=== PATIENT | male | born 1975 | race Caucasian/White ===

== ENCOUNTER 2017-07-21 09:00 | Outpatient (RCR) ==
--- NOTE | 2017-07-12 11:43 | RS.OPPTEV2 ---
Date of Note: 07/11/17 Visit #: 1 Date of Evaluation: 07/11/17 Payer Source: Insurance Treatment Diagnosis: Lumbar spondylolisthesis, right LE pain History of Condition/Mechanism of Injury:: Patient reports having symptoms for approximately a year. States pain has progressively gotten worse over the last six months. Reports no specific injury. Prior Level of Function.....Patient was independent with: ADL's, Self Care, Work /Vocation, Caregiving, Ambulation/Mobility, Community Integration/Access Functional Limitations: Standing, Community Access/Integration Current Subjective/complaints:: Patient reports pain into the right buttock/hip with standing and walking. States he is fine in sitting. States he is at the point that he can hardly stand for 30 minutes due to pain. States it feels like pain and tightness, "like a bad Charley horse". Denies any symptoms on the left LE. Reports if he stands very long, it sometimes feels like he needs to drag the right leg or force it forward. States he has no problems sleeping, just standing and walking. He wants to try therapy and hopes to avoid surgery. Medical History Surgical History Comments:: Appendectomy Smoking Status: Never smoker Diagnostic Testing/Imaging:: X ray lumbar spine: Impression:Stable grade 1 spondyloslisthesis at L5-S1 measuring 9mm without evidence of instability. 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 Hx Home Medications: Diclofenac Patient's Goals: His goal is to get relief of his symptoms and avoid surgery. Pain Assessment - Pain Description Pain Location: right hip/buttock area Pain Description: Tightness Current Pain Intensity: not quantified Worst Pain Intensity: not quantified Functional Outcome Measure LE Functional Scale: 61 (61/80=23.75% impairment) - G Codes & Severity Modifier G Codes & Modifier: NA Source of G Code score: NA Observation - Observation Posture: Forward Head, Rounded Shoulders Gait - Gait Pattern General Gait Pattern Observation: No Deviations/Normal - ROM Lumbar Flexion: Hand reach to patellae Sidebending to Left: Reach to Mid-thigh Sidebending to Right: Reach to Mid-thigh Comments: Lumbar extension is WFL's with reports of tenderness in the right hip/ low back with end range. Lower trunk rotation is more limited to his left. Bilateral LE AROM is WFL's. - Strength Comments: Trunk strength is good. LE strength is bilaterally 5/5. - Special Tests AMOR Test: Negative Left, Negative Right SLR Test: Negative Left, Negative Right Seated Dural Stretch Test: Negative Left, Negative Right SI Joint Distraction: Negative Palpation Comments:: Patient reports no tenderness along the lumbar paraspinals or to either SI joint. Also reports no symptoms with central pressures throughout the lumbar paraspinals. Demonstrates moderate muscle guarding along the right lumbar paraspinals. Minimal increased muscle guarding along the left. Sensation - Sensation Right Lower Extremity: Intact/Normal Left Lower Extremity: Intact/Normal Additional Comments: Additional Comments: Right SLR in supine to 30-35 degrees, Left to 45 degrees. Right hip external rotation is also tighter compared to the left. Interventions - Exercise/Activities/Manual Therapy Exercises/Activities: Patient instructed in exercises of stretching: HS, piriformis, and lower trunk rotation , and also SLR and isometric hip flexion for anterior trunk strengthening. Manual Therapy: NA HOME EXERCISE PROGRAM: stretching: HS, piriformis, and lower trunk rotation , and also SLR and isometric hip flexion for anterior trunk strengthening. - Charges Timed Code Treatment Minutes: 0 Total Treatment Time: 40 mins Procedures billed for this date of service:: EVAL Low Assessment Assessment: Patient presents to therapy with a diagnosis of Spondylolisthesis of lumbosacral region. He presents with reports of right hip/buttock pain and feeling of tightness which is brought on during standing and walking. His X ray reports describes Grade 1 Spondylolisthesis at L5-S1. He demonstrates tight HS, especially the right LE. He will benefit from LE stretching and anterior trunk strengthening to reduce his symptoms into the right LE. Patient Education: Education of diagnosis, Body/Joint mechanics, Home Exercise Program, Activity Modification, Education of Plan of Care Rehab Potential: Good Short Term Goals Goal #1: Right SLR to 40-45 degrees. Goal to be met by: 07/25/17 Goal #2: Pt independent and compliant in HEP. Goal to be met by: 07/25/17 [employer] Goals Goal #1: Pt knows HEP and to continue ex's to maintain functional level at D/C. Goal to be met by: 08/20/17 Goal #2: Pt to tolerate standing at work and home with minimal discomfort. Goal to be met by: 08/20/17 Goal #3: Pt will ambulate community distances with minmal right LE symptoms. Goal to be met by: 08/20/17 Goal #4: Pt to demo. understanding of his diagnosis and back safety. Goal to be met by: 08/20/17 Plan - Treatment to be Provided Procedures: Therapeutic Exercises, Therapeutic Activity, Manual Therapy, Patient Education Modalities: Electrical Stimulation, Ultrasound/Phonophoresis, Cryotherapy, Hot Packs - Treatment Plan Frequency: 2-3 X week Duration: 6 weeks ORDER # VISITS AND/OR THROUGH DATE: 08/20/17 - Treatment Code (1) Spondylolisthesis of lumbosacral region Code(s): M43.17 - SPONDYLOLISTHESIS, LUMBOSACRAL REGION Comments: M43.17 (2) Lumbar radiculopathy, right Code(s): M54.16 - RADICULOPATHY, LUMBAR REGION Comments: M54.16
--- NOTE | 2017-07-13 15:42 | RS.OPPTDN ---
Subjective Date of Note: 07/13/17 Visit #: 2 Date of Evaluation: 07/11/17 Payer Source: Insurance Treatment Diagnosis: Lumbar spondylolisthesis, right LE pain Current Subjective/complaints:: Patient reports significant reduction in pain with USCOM. States he is working on HEP and stretching helps relieve pain. Pain Assessment - Pain Description Pain Location: Right lowback and S-I region Current Pain Intensity: moderate - Treatment Modality: US with ES (Comb.) Parameters/Method Applied: [id number] with US at 1..5w/cm2 and Estim to 12p.v. to the right lumbar paraspinals and just lateral to the right S-I joint prior to EX. Patient Position: Left Sidelying Interventions - Exercise/Activities/Manual Therapy Exercises/Activities: Assisted with extensive stretching of the bilateral hamstrings, piriformis, SKTC, and LTR. Patient performs piriformis stretch with DKTC. Isometric hip flexion with manual resistance, 4s/5reps each. Begins bridging. Reviewed body mechanics, safety with lifting and alternate positions for hamstrings at home. Patient given additional copy of HEP. Total minutes of Exercise: 25mins Manual Therapy: NA HOME EXERCISE PROGRAM: stretching: HS, piriformis, and lower trunk rotation , and also SLR and isometric hip flexion for anterior trunk strengthening. Bridging. - Charges Timed Code Treatment Minutes: 39mins Total Treatment Time: 45mins Procedures billed for this date of service:: USCOM, EX2 Assessment: Patient responded well to modalities with report of pain reduction. He is motivated to work on HEP and progress. Patient Education: Education of diagnosis, Body/Joint mechanics, Home Exercise Program, Home Safety, Activity Modification Patient demonstrates compliance with HEP?: Yes Short Term Goals Goal #1: Right SLR to 40-45 degrees. Goal to be met by: 07/25/17 Goal #2: Pt independent and compliant in HEP. Goal to be met by: 07/25/17 Progress towards Goal:: Progressing [facility] Goals Goal #1: Pt knows HEP and to continue ex's to maintain functional level at D/C. Goal to be met by: 08/20/17 Goal #2: Pt to tolerate standing at work and home with minimal discomfort. Goal to be met by: 08/20/17 Goal #3: Pt will ambulate community distances with minmal right LE symptoms. Goal to be met by: 08/20/17 Goal #4: Pt to demo. understanding of his diagnosis and back safety. Goal to be met by: 08/20/17 Progress towards goal: Progressing Plan PLAN OF CARE EXPIRES ON:: 08/20/17 ORDER # VISITS AND/OR THROUGH DATE: 08/20/17 PLAN: Continue modalities and progress exercise to reduce pain and increase functional activity level.
--- NOTE | 2017-07-15 16:30 | RS.OPPTDN ---
Subjective Date of Note: 07/15/17 Visit #: 3 Date of Evaluation: 07/11/17 Payer Source: Insurance Treatment Diagnosis: Lumbar spondylolisthesis, right LE pain Current Subjective/complaints:: Patient reports significant improvement in right hip/S-I area pain with modalities and stretching. Pain Assessment - Pain Description Pain Location: Right S-I area Current Pain Intensity: moderate - Treatment Modality: Electrical Stim Unattended Parameters/Method Applied: [id number] at 1.5w/cm2 to the right lower lumbar paraspinals and S-I joint area prior to EX. Patient Position: Left Sidelying Interventions - Exercise/Activities/Manual Therapy Exercises/Activities: Assisted with extensive stretching of the bilateral hamstrings, piriformis, SKTC, and LTR. Patient performs piriformis stretch with DKTC. Discussed body mechanics, safety with lifting. Total minutes of Exercise: 20mins Manual Therapy: NA HOME EXERCISE PROGRAM: stretching: HS, piriformis, and lower trunk rotation , and also SLR and isometric hip flexion for anterior trunk strengthening. Bridging. - Charges Timed Code Treatment Minutes: 34mins Total Treatment Time: 40mins Procedures billed for this date of service:: USCOM, EX Assessment: Patient responding well to treatment with reports of decreased pain. Patient Education: Education of diagnosis, Body/Joint mechanics, Home Exercise Program, Home Safety, Activity Modification Patient demonstrates compliance with HEP?: Yes Short Term Goals Goal #1: Right SLR to 40-45 degrees. Goal to be met by: 07/25/17 Progress towards Goal:: Progressing Goal #2: Pt independent and compliant in HEP. Goal to be met by: 07/25/17 Progress towards Goal:: Progressing [facility] Goals Goal #1: Pt knows HEP and to continue ex's to maintain functional level at D/C. Goal to be met by: 08/20/17 Goal #2: Pt to tolerate standing at work and home with minimal discomfort. Goal to be met by: 08/20/17 Goal #3: Pt will ambulate community distances with minmal right LE symptoms. Goal to be met by: 08/20/17 Goal #4: Pt to demo. understanding of his diagnosis and back safety. Goal to be met by: 08/20/17 Progress towards goal: Progressing Plan PLAN OF CARE EXPIRES ON:: 08/20/17 ORDER # VISITS AND/OR THROUGH DATE: 08/20/17 PLAN: Continue modalities and progress exercise to reduce pain and increase functional activity level.
--- NOTE | 2017-07-19 16:34 | RS.OPPTDN ---
Subjective Date of Note: 07/19/17 Visit #: 4 Date of Evaluation: 07/11/17 Payer Source: Insurance Treatment Diagnosis: Lumbar spondylolisthesis, right LE pain Current Subjective/complaints:: Patient reports he has been progressing well but had a flair-up Tuesday night. 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 Following treatment, lhe reported a significant reduction in pain. Pain Assessment - Pain Description Pain Location: Right S-I Pain Description: Aching Current Pain Intensity: mild following treatment - Treatment Modality: US with ES (Comb.) Parameters/Method Applied: [id number] US at 1.5w/cm2 and Estim at 14p.v. to the right S-I joint and base of right lumbar paraspinals. Patient Position: Left Sidelying Interventions - Exercise/Activities/Manual Therapy Exercises/Activities: Assisted with extensive stretching of the bilateral hamstrings, piriformis, SKTC, and LTR. Patient performs piriformis stretch with DKTC. Mobilization of the S-I joint with right LE flexed and in abduction. Reivewed body mechanics, sitting positions at work, and safety with lifting. Total minutes of Exercise: 20mins Manual Therapy: NA HOME EXERCISE PROGRAM: stretching: HS, piriformis, and lower trunk rotation , and also SLR and isometric hip flexion for anterior trunk strengthening. Bridging. - Charges Timed Code Treatment Minutes: 34mins Total Treatment Time: 37mins Procedures billed for this date of service:: USCOM, EX Assessment: Patient with flair-up over weekend but responds well to modalities and exercise today. Patient Education: Body/Joint mechanics, Home Exercise Program, Home Safety, Activity Modification Patient demonstrates compliance with HEP?: Yes Short Term Goals Goal #1: Right SLR to 40-45 degrees. Goal to be met by: 07/25/17 Progress towards Goal:: Progressing Goal #2: Pt independent and compliant in HEP. Goal to be met by: 07/25/17 Progress towards Goal:: Progressing [employer] Goals Goal #1: Pt knows HEP and to continue ex's to maintain functional level at D/C. Goal to be met by: 08/20/17 Goal #2: Pt to tolerate standing at work and home with minimal discomfort. Goal to be met by: 08/20/17 Goal #3: Pt will ambulate community distances with minmal right LE symptoms. Goal to be met by: 08/20/17 Goal #4: Pt to demo. understanding of his diagnosis and back safety. Goal to be met by: 08/20/17 Progress towards goal: Progressing Plan PLAN OF CARE EXPIRES ON:: 08/20/17 ORDER # VISITS AND/OR THROUGH DATE: 08/20/17 PLAN: Continue modalities and progressive exercise to reduce patient and return patient to PLOF.
--- NOTE | 2017-07-21 13:55 | RS.OPPTDN ---
Subjective Date of Note: 07/21/17 Visit #: 5 Date of Evaluation: 07/11/17 Payer Source: Insurance Treatment Diagnosis: Lumbar spondylolisthesis, right LE pain Current Subjective/complaints:: Patient reports continued flair-ups of right hip /S-I pain with activity, but states he is better overall. States he is working on HEP and believes it will take some time and progressive exercise to maintain consistent relief. Pain Assessment - Pain Description Pain Location: Right hip and S-I Pain Description: Sharp, Aching Current Pain Intensity: moderate, no pain following treatment and exercise - Treatment Modality: US with ES (Comb.) Parameters/Method Applied: [id number] US at 1.5w/cm2 and Estim 15-17p.v. to the right lower lumbar paraspinals and right S-I joint area. Patient Position: Left Sidelying Interventions - Exercise/Activities/Manual Therapy Exercises/Activities: Assisted with extensive stretching of the bilateral hamstrings, piriformis, SKTC, and LTR. Patient performs piriformis stretch with DKTC. Mobilization of the S-I joint with right LE flexed and in abduction. Prone for passive hip IR and ER, isometric hip IR and ER, and green theraband for resistive hip IR and ER. Total minutes of Exercise: 30mins Manual Therapy: NA HOME EXERCISE PROGRAM: stretching: HS, piriformis, and lower trunk rotation , and also SLR and isometric hip flexion for anterior trunk strengthening. Bridging. Prone isometric hip IR and ER, red theraband for resistive IR and ER - Charges Timed Code Treatment Minutes: 44mins Total Treatment Time: 45mins Procedures billed for this date of service:: USCOM, EX2 Assessment: Patient continues to see improvement and is motivated to continue working on HEP. Patient Education: Education of diagnosis, Body/Joint mechanics, Home Exercise Program Patient demonstrates compliance with HEP?: Yes Short Term Goals Goal #1: Right SLR to 40-45 degrees. Goal to be met by: 07/25/17 Progress towards Goal:: Progressing Goal #2: Pt independent and compliant in HEP. Goal to be met by: 07/25/17 Progress towards Goal:: Progressing [facility] Goals Goal #1: Pt knows HEP and to continue ex's to maintain functional level at D/C. Goal to be met by: 08/20/17 Goal #2: Pt to tolerate standing at work and home with minimal discomfort. Goal to be met by: 08/20/17 Goal #3: Pt will ambulate community distances with minmal right LE symptoms. Goal to be met by: 08/20/17 Goal #4: Pt to demo. understanding of his diagnosis and back safety. Goal to be met by: 08/20/17 Progress towards goal: Progressing Plan PLAN OF CARE EXPIRES ON:: 08/20/17 ORDER # VISITS AND/OR THROUGH DATE: 08/20/17 PLAN: Continue modalities and progress exercise to reduce pain and return patient to PLOF.
== END 2017-07-27 ==
PROVIDERS: ATTEND Nurse Practitioner
DX: M43.17 Spondylolisthesis, lumbosacral region (principal)